=== PATIENT | female | born 1975 | race Caucasian/White ===

== ENCOUNTER 2017-12-22 14:36 | Emergency (ER) | payer BC ==
[~2017-12-22] VITALS: Ht 160 cm; Wt 57.6 kg
[~2017-12-22 14:36] MED LIST: DEPO-PROVE150 MG/1 M IM; LEVAQUIN500 MG PO; NAPROSYN500 MG; PERCOCET 5-3251 EACH PO
[2017-12-22] MEDS ORDERED: TOPIRAMATE25 MG PO (15:03)
[2017-12-22] MEDS ORDERED: IMITREX25 MG PO (15:22)
[2017-12-22] MEDS ORDERED: ZOFRAN ODT4 MG PO (15:22)
== END 2017-12-22 16:51 | disposition home or self-care (01) ==
LOC: ED 14:36
DX: G43.809 Other migraine, not intractable, without status migrainosus (principal); Z87.891 Personal history of nicotine dependence; Z88.6 Allergy status to analgesic agent; Z88.5 Allergy status to narcotic agent; Z88.0 Allergy status to penicillin; Z79.899 Other long term (current) drug therapy
CPT/HCPCS: 96361; 96374; 96375; 99283; J1200; J1885; J2405; J7030

== ENCOUNTER 2021-02-13 00:47 | Emergency (ER) | payer BC ==
[~2021-02-13 00:47] MED LIST changes: +ACETAMINOPHEN500 M1 PO; +ADVIL200 MG PO; +BUSPIRONE HCL15 MG PO; +CEPHALEXIN500 MG PO; +IMITREX25 MG PO; +TOPIRAMATE25 MG PO; +ZANAFLEX4 MG PO; +ZOFRAN ODT4 MG PO
--- OUTSIDE RECORDS SUMMARY | 2021-02-13 00:50 | XMS ---
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 - 2 Visits in 30 Days CARE PROVIDERS SPRING [facility] Current PHONE: [phone] Shayne has no Care Guidelines for this patient. E.Orion VISIT COUNT (12 MO.) [facility] [address] [place] [address] TOTAL 3 NOTE: Visits indicate total known visits. ED/UCC VISIT TRACKING (12 MO.) 02/13/2021 00:48 [facility] [place] TYPE: Emergency COMPLAINT: - VOMITING/BACK PAIN 01/17/2021 08:10 [facility] Emergency DIAGNOSES: - weakness, dizzy, N/V - Weakness - Urinary tract infection, site not specified - Emesis 09/16/2020 14:16 [facility] [place] TYPE: Emergency COMPLAINT: - NAUSEA, FLANK PAIN, ABD PAIN INPATIENT VISIT TRACKING (12 MO.) 09/16/2020 14:17 [facility] [place] TYPE: Observation COMPLAINT: - PANCREATITIS DIAGNOSES: - Migraine, unspecified, not intractable, without status migrainosus - Urinary tract infection, site not specified - Allergy status to analgesic agent - Allergy status to penicillin - Personal history of nicotine dependence - Thrombocytopenia, unspecified - Calculus of kidney - Acute pancreatitis without necrosis or infection, unspecified [email or web address]
== END 2021-02-13 05:56 | disposition home or self-care (01) ==
LOC: ED 00:47
DX: K29.00 Acute gastritis without bleeding (principal)
CPT/HCPCS: 80053; 81001; 83690; 85025; 87088; 99284; J1885; J2405; J7030

== ENCOUNTER 2021-04-03 17:57 | Emergency (ER) | payer BC ==
[~2021-04-03] VITALS: Ht 160 cm; Wt 56.7 kg
== END 2021-04-03 23:06 | disposition home or self-care (01) ==
LOC: ED 17:57
DX: R10.9 Unspecified abdominal pain (principal); Z87.891 Personal history of nicotine dependence; Z87.442 Personal history of urinary calculi
CPT/HCPCS: 74176; 80053; 81001; 83690; 84703; 85025; 99284-25; J1885; J2405; J7030

== ENCOUNTER 2021-07-04 10:03 | Observation (INO) | payer BC ==
[~2021-07-04] VITALS: Ht 160 cm; Wt 60.5 kg
[~2021-07-04 10:03] MED LIST changes: -ZANAFLEX4 MG PO
--- OUTSIDE RECORDS SUMMARY | 2021-07-04 10:06 | XMS ---
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 Shayne has no Care Guidelines for this patient. Priscila VISIT COUNT (12 MO.) 1 [facility] M[facility] 4 [facility]E Bowman TOTAL 5 NOTE: Visits indicate total known visits. ED/UCC VISIT TRACKING (12 MO.) 07/04/2021 10:04 [facility] [place] TYPE: Emergency COMPLAINT: - N/V, BODY ACHES, LOOSE STOOL 04/03/2021 17:58 [facility] [place] TYPE: Emergency COMPLAINT: - ABDOMINAL PAIN/FLANK PAIN DIAGNOSES: - Personal history of nicotine dependence - Personal history of urinary calculi - Unspecified abdominal pain 02/13/2021 00:48 [facility] [place] TYPE: Emergency COMPLAINT: - VOMITING/BACK PAIN DIAGNOSES: - Acute gastritis without bleeding - Nausea with vomiting, unspecified 01/17/2021 08:10 [facility] DIAGNOSES: - weakness, dizzy, N/V - Weakness - Urinary tract infection, site not specified - Emesis 09/16/2020 14:16 [facility] [place] [facility] [place] TYPE: Emergency COMPLAINT: - NAUSEA, FLANK [...] Acute pancreatitis without necrosis or infection, unspecified [email or web address]
--- NOTE | 2021-07-04 16:41 | NUR ---
07/04/21 1641 Myriam Davis 1550 PT ARRIVED IN PACU NON RESPONSIVE TO NOXIOUS STIMULI WITH OPA IN PLACE. 1615 NO CHANGE IN PT STATUS. 1630 NO CHANGE IN PT STATUS. O2 REMOVED. SATS 95% ON RA.
--- NOTE | 2021-07-04 17:10 | NUR ---
PT ARRIVED TO THE FLOOR AT THIS TIME. THIS RN RECEIVED REPORT FROM CALLIE GARCIA
--- NOTE | 2021-07-04 17:15 | NUR ---
pt arrived via stretcher. pt only awakens with painful stimulation and then falls back asleep. 4 inscions noted- all steri strips with scant drainage noted. due to pt resting comfortably, FACES score is 0. cpox placed on pt. admission done to the best of this rn's ability.
--- NOTE | 2021-07-04 18:10 | NUR ---
pts son max here to visit pt. plans to stay the night. this rn updated pts son
--- NOTE | 2021-07-04 18:10 | NUR ---
THIS RN IN PTS ROOM TO DO POST OPP CHECK. PT STILL RESTING QUITE SOUNDLY AT THIS TIME. INSCIONS UNCHANGED AT THIS TIME. VITALS COMPLETED. CALL LIGHT WITHIN REACH
--- NOTE | 2021-07-04 19:05 | NUR ---
SHIFT REPORT RECEIVED FROM DAYSHIFT JOSE CADE AT BEDSIDE. pt DROWSY AND RESTING IN BED, JOSE CADE IN ROOM ADMINISTERING PRN PAIN MEDICATION. CPOX IN PLACE, pt ON RA. RR EVEN AND UNLABORED. SPO2 96%, HR 80. IV FLUIDS INFUSING DIRECTED, SITE WNL. CALL LIGHT IN REACH AND FAMILY IN ROOM.
--- NOTE | 2021-07-04 19:11 | NUR ---
THIS RN IN PTS ROOM TO DO POST OPP CHECK WITH MD. PT MORE AWAKE AT THIS TIME AND REPORTING PAIN 8/10. THIS RN OFFERED PT TORADOL FOR PAIN DUE TO PTS DROWSINESS. PT REQUESTING A STRONGER PAIN MED. PT CONTINUES TO BE ON CPOX, O2 SATS WNL. INSCIONS SITES UNCHANGED
--- NOTE | 2021-07-04 20:05 | NUR ---
IN TO ASSIST RN WITH POST OP VITALS, RN AWARE OF SYS BP, NO FURTHER NEEDS AT THIS TIME, PT RESTING IN BED
--- NOTE | 2021-07-04 20:15 | NUR ---
LAST SET POST OP VSS, CPOX IN PLACE. RR EVEN AND UNLABORED, CALL LIGHT IN REACH.
--- NOTE | 2021-07-04 23:00 | NUR ---
ASSESSMENT COMPLETE, SCHEDULED MEDS GIVEN ALONG WITH PRN PAIN MEDICATION (SEE EMAR) FOR 01/27 PAIN. pt AWAKE AND RESTING IN BED, A/OX4. DENIES NAUSEA, TOLERATING PO LIQUIDS AND JELLO. LAP SITES X4 REMAIN UNCHANGED FROM START OF SHIFT. SCDS IN PLACE, pt UP SBA TO VOID, 500 MLS OUTPUT NOTED. pt DENEIS DIZZINESS. pt BACK IN BED, NO FURTHER NEEDS. CALL LIGHT IN REACH AND SON IN ROOM.
--- NOTE | 2021-07-05 00:30 | NUR ---
pt AMBULATING IN HALLWAY INDEPENDENTLY, STEADY ON FEET.
--- NOTE | 2021-07-05 02:30 | NUR ---
ASSESSMENT COMPLETE, NO NEW CHANGES. LAP SITES X4 REMAIN UNCHANGED, PRN PAIN MEDICATION GIVEN FOR 6/10 PAIN, ICE IN PLACE. SCD'S ON. NO FURTHER NEEDS. CALL LIGHT IN REACH.
[2021-07-05] MEDS ORDERED: VENTOLIN HFA18 GM (04:29)
[2021-07-05] MEDS ORDERED: TIZANIDINE HCL6 MG PO (04:29)
--- NOTE | 2021-07-05 04:32 | NUR ---
pt REPORTS TAKING PO TAZANIDINE 6MG Q8HPRN FOR MUSCLE SPASMS. MED INCLUDED IN MED REC.
--- NOTE | 2021-07-05 05:47 | NUR ---
pt AMBULATING INDEPENDENTLY IN HALLWAY, NO NEEDS VERBALIZED.
--- NOTE | 2021-07-05 05:59 | NUR ---
SCHEDULED IV ABX INFUSING DIRECTED, IV SITE WNL. NEW BAG IV FLUIDS ALSO HUNG PER MD ORDERS, IV SITE WNL. pt REPORTS 5/10 ABD PAIN, SCHEDULED TYLENOL ASLO PROVIDED. CALL LIGHT IN REACH, FRESH ICE PACK PROVIDED. SON MAX IN ROOM.
--- NOTE | 2021-07-05 07:40 | NUR ---
Report from Kaelyn Arora RN. Patient states pain is currently 5/10 and is requesting analgesic. States ice bag is leaking, replaced with new bag.
--- NOTE | 2021-07-05 08:01 | NUR ---
PATIENT AMBULATING AROUND ROOM. REPORT FROM Kaelyn SILVEIRA RN, AT 0740. PATIENT RATED PAIN 5/10. PRN ANALGESIC ADMINISTERED AT THIS TIME. ASSESSMENT COMPLETED. FRESH ICE PACK PROVIDED. FRESH ICE WATER PROVIDED. DENIES OTHER NEEDS AT THIS TIME. STATES SHE HAS NOT SLEPT ALL NIGHT AND WOULD LIKE TO REST THIS AM IF POSSIBLE. CALL LIGHT IN REACH, BED RAILS UP X2.
--- NOTE | 2021-07-05 08:41 | NUR ---
PT REFUSED AM CARE. UPDATED WHITE BOARD. CALL LIGHT WITHIN REACH, NO FURTHER NEEDS AT THIS TIME
[2021-07-05] MEDS ORDERED: ZANAFLEX4 MG PO (09:16)
[2021-07-05] MEDS ORDERED: POLYMYXIN B-TMP10 ML OD (09:17)
--- NOTE | 2021-07-05 09:23 | NUR ---
Sitting up in recliner. States the pain has not improved. Requests pain medication. See EMAR. Patient states pain is worse sitting in recliner. Ambulated just prior to this nurse's arrival this AM, 3 laps around unit. Has been up walking in room multiple times. Repositions self in bed. AM medications administered. Denies other needs at this time. Call light in reach, bed rails up X2.
--- NOTE | 2021-07-05 09:59 | NUR ---
PT BACK IN BED. PT SAYS SITTING IN THE CHAIR CAUSED TOO MUCH PAIN. PT HAD BLINDS RE-CLOSED. CALL LIGHT WITHIN REACH, NO FURTHER NEEDS AT THIS TIME.
[2021-07-05] MEDS ORDERED: IMITREX100 MG PO (10:07)
[2021-07-05] MEDS ORDERED: [UNRECOGNIZED DRUG - OTHER] PO (10:08)
--- NOTE | 2021-07-05 10:08 | NUR ---
MED REC COMPLETE
--- NOTE | 2021-07-05 11:20 | NUR ---
States she has been able to rest after morphine given because pain was better controlled. New ice pack provided. Denies other needs. Call light in reach, bed rails up X2.
--- NOTE | 2021-07-05 12:01 | NUR ---
Ambulating in hallway at this time.
--- NOTE | 2021-07-05 13:15 | NUR ---
Spoke with Opal. She has been suffering with gallbladder issues for one year. Happy to have had lab medardo. Some surgical pain today. Lives in 2 story home with her son. Plans on dc to home. Has two sons, both will help as needed. 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 Does not yet have benefits. I will speak with management about PTO donation or funds from [facility] [place].
--- NOTE | 2021-07-05 14:27 | NUR ---
LYING IN BED. PAIN 6/10, PRN PERCOCET GIVEN. STATES SHE WILL REST FOR A LITTLE BIT THEN GET UP AND AMBULATE IN HALLWAY WHEN MEDICATION HAS STARTED TO TAKE EFFECT. ICE WATER PROVIDED. DENIES OTHER NEEDS AT [facility].
--- NOTE | 2021-07-05 16:26 | NUR ---
Ambulating in hallway.
--- NOTE | 2021-07-05 18:07 | NUR ---
PT IN A CHATTY MOOD. ROOM TIDIED, FRESH ICE WATER AND ICE PACKS BROUGHT. CALL LIGHT WITHIN REACH, NO FURTHER NEEDS AT THIS TIME.
--- NOTE | 2021-07-05 18:33 | OR ---
[facility] [address] [place], [place] [address] Signed DATE OF OPERATION: 07/04/2021 SURGEON: Jennifer Starr MD PREOPERATIVE DIAGNOSIS: Acute calculous cholecystitis. POSTOPERATIVE DIAGNOSIS: Acute calculous cholecystitis. PROCEDURES: 1. Laparoscopic cholecystectomy with intraoperative cholangiogram. 2. Surgeon-directed fluoroscopy. ANESTHESIA: General endotracheal, Jennifer Child CRNA. Local 10 mL of 0.25% Marcaine with epinephrine. INDICATIONS: This 45-year-old white woman presented to the emergency room with two days of increasing abdominal pain and was evaluated by Dr. Elder Arriola in the emergency room, where she was found to have an elevated white count, normal liver enzymes and an ultrasound which showed a distended gallbladder, gallbladder wall thickening, and multiple stones. She has been admitted for pancreatitis several months ago, but stones were not seen, therefore this was allowed to resolve without further intervention. She quite clearly has acute calculous cholecystitis at this time. She has been fluid resuscitated given intravenous antibiotics, IV fluids, and has been n.p.o. since yesterday based on her illness. She is admitted at this time to undergo cholecystectomy preferred by laparoscopic approach. She understands the risks of bleeding, infection, bile duct injury, and need for open procedure, as well as failure to cure her symptoms. Understanding all that, she wished to proceed. FINDINGS: The gallbladder was tensed and distended and quite edematous. Once excised, multiple gallstones were noted within the gallbladder lumen. Cholangiogram was normal. She had no other findings of concern. The liver was normal. DESCRIPTION OF PROCEDURE: The patient was brought to the operating room, given a general endotracheal anesthetic. Preoperative antibiotic Ancef had been given. Sequential compression device stockings Electronically Signed By: JENNIFER STARR MD 07/05/21 1833 PATIENT NAME: TI MARKHAM OPERATIVE REPORT DATE OF : 77 REPORT #: [id number] PHYSICIAN: JENNIFER STARR MD PCP: MILAGRO LONDONO MD REPORT IS CONFIDENTIAL AND NOT TO BE RELEASED WITHOUT AUTHORIZATION [facility] [address] [place], [place] [address] Signed were used. The abdomen was prepared with chlorhexidine solution and draped sterilely. An infraumbilical incision was made and using an open Prince cannula technique, pneumoperitoneum was achieved to a level of 14 mmHg of carbon dioxide gas. Intraabdominal inspection showed no sign of ascites or carcinomatosis, but the gallbladder was quite tense and distended and very edematous. The liver was normal. Three additional trocars were placed in usual configuration in the subxiphoid, right midclavicular, and right anterior axillary line. The gallbladder was elevated cephalad and retracted laterally and although there was a somewhat floppy medial segment of the left lobe of the liver. Dissection of the triangle of Calot was undertaken. Marked edema was noted in the area highly consistent with acute cholecystitis. Ultimately, the cystic duct and cystic arterial branches were dissected free. A clip was applied across gallbladder cystic duct junction and a transverse choledochotomy made in the cystic duct, egress of clear bile was noted. Using the Gillis type cholangiocatheter, intraoperative cholangiography was undertaken showing free flow of contrast in the biliary tree with prompt emptying into the duodenum. There was no sign of filling defect or biliary anomaly. The catheter was removed and the cystic duct was triply clipped and divided. The gallbladder was dissected free in a retrograde fashion. Clips were applied to the cystic arterial branch as well and divided also. The wall of the gallbladder was quite markedly edematous related to the inflammation. The gallbladder was placed in an endobag and extracted through the infraumbilical port site without problem, opened on the back table and found to have multiple yellow gallstones. There was no sign of neoplasm. Irrigation was undertaken in subhepatic space. There was no bleeding or bile leak or other problems. Excess irrigation of fluid was suctioned free. The trocars were then removed under direct visualization showing no sign of bleeding. The infraumbilical fascial incision reapproximated with interrupted 0-Vicryl suture. It was additionally secured with a running 0-PDS suture. A 10 mL of 0.25% Marcaine with epinephrine was injected locally. The skin was closed with interrupted 3-0 Vicryl and Steri-Strips were applied. The patient was ultimately extubated and transported to the recovery room in good condition having suffered no complication. Sponge, needle, and instrument counts reported as correct x3. Jennifer Starr MD Electronically Signed By: JENNIFER STARR MD 07/05/21 1833 PATIENT NAME: TI MARKHAM OPERATIVE REPORT DATE OF : 77 REPORT #: [id number] PHYSICIAN: JENNIFER STRAR MD PCP: MILAGRO LONDONO MD REPORT IS CONFIDENTIAL AND NOT TO BE RELEASED WITHOUT AUTHORIZATION [address] [address] Signed /[facility] /[id number] cc: MD Elder Collazo MD Copies: MILAGRO LONDONO MD, WILLIAM S MD ~ Electronically Signed By: JENNIFER STARR MD 07/05/21 1833 PATIENT NAME: SHAHRZADTI DARLING OPERATIVE REPORT DATE OF : 77 REPORT #: [id number] PHYSICIAN: JENNIFER STARR MD PCP: MILAGRO LONDONO MD REPORT IS CONFIDENTIAL AND NOT TO BE RELEASED WITHOUT AUTHORIZATION
--- NOTE | 2021-07-05 18:33 | HP ---
[facility] [address] [place], [place] [address] Signed ADMISSION DATE: 07/04/2021 REASON FOR ADMISSION: Acute calculous cholecystitis. 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 She has had recurrent bouts of epigastric and vague abdominal pain, having been actually admitted to the hospital with a CAT scan showing inflammation around the pancreas, but a normal lipase, which resolved without further diagnosis. Review of a discharge summary by Dr. Andrew Cummings from September 18, 2020, confirmed that she had abdominal pain radiating into the back, was admitted and observed and gallbladder evaluation of unknown type was considered to be unremarkable. She was noted at the time to have an abnormal urinalysis. For the past two days, she has had increasing abdominal pain, protracted nausea and vomiting and presented once again to the emergency room where she was evaluated thoroughly by Dr. Steele. His evaluation included lab studies, which showed white count elevation of 17,000, normal platelets and hematocrit of 42.2. Her Chem profile was reasonably normal. Liver enzymes are normal as well. Serologic testing showed coronavirus in the past have been negative, but current test is still pending. An abdominal ultrasound was performed at approximately noon, which showed a thickened gallbladder wall as well as definitely thickened gallbladder and pericholecystic fluid and multiple mobile tiny stones. She had a positive Lopez sign as well. Her lipase was noted to be normal. PAST MEDICAL HISTORY: Relatively unremarkable other than her recurrent bouts of abdominal pain as previously noted. She does have a migraine history. PAST SURGICAL HISTORY: Includes breast reduction and tonsillectomy. 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 She is not . She is a former smoker. ALLERGIES: She has allergies to penicillin (yeast infection) and hydrocodone (hives). Electronically Signed By: JENNIFER STARR MD 07/05/21 1833 PATIENT NAME: TI MARKHAM HISTORY AND PHYSICAL DATE OF : 77 REPORT #: [id number] PHYSICIAN: JENNIFER STARR MD PCP: MILAGRO LONDONO MD REPORT IS CONFIDENTIAL AND NOT TO BE RELEASED WITHOUT AUTHORIZATION [facility] [address] [place] [id number] Signed MEDICATIONS: Her home medications have included sumatriptan (Imitrex) for migraines and Zofran for nausea. REVIEW OF SYSTEMS: She denies any chest pain or shortness of breath. Has no dysphagia or dysuria. Denies any hematemesis or blood per rectum. Of note, her urinalysis at this time shows 2-3 white cells per high-power field and no bacteria seen. Her coronavirus assessment is negative today. PHYSICAL EXAMINATION: GENERAL: A thin white woman, who looks to be in moderate discomfort. HEENT: Mucous membranes reasonably moist. NECK: Trachea is midline. CHEST: Shows normal respiratory excursion. Pulse is regular. ABDOMEN: Scaphoid and nondistended. She has a supraumbilical ring present. Abdominal palpation shows tenderness in the epigastric and right subcostal area. There is no mass. She has no ascites. EXTREMITIES: Show no clubbing, cyanosis, or edema. LAB STUDIES: Pertinent show white count of 17, hematocrit of 42.2, and platelets 374,000. Chem profile normal including normal liver enzymes. Lipase normal at 47. COVID serology is negative. IMAGING STUDIES: Have been reviewed, specifically the ultrasound which shows a thickened gallbladder wall and what appeared to be stones aligned along it. The report from Dr. Quynh Gutierrez confirms a normal pancreas and normal liver and multiple tiny stones with wall thickening and pericholecystic fluid. ASSESSMENT: The patient has acute calculous cholecystitis. There is little doubt that she has had symptoms in the past, though evaluation previously was not confirmatory of cholecystitis; she did have pancreatitis on imaging study, but no elevated lipase apparently. I discussed with her the recommendation of treatment to include cholecystectomy, preferably by laparoscopic approach. The risks of bleeding, infection, bile duct injury, need for open procedure and so forth were reviewed in detail. She understands and wished to proceed. Electronically Signed By: JENNIFER STARR MD 07/05/21 1833 PATIENT NAME: TI MARKHAM HISTORY AND PHYSICAL DATE OF : 77 REPORT #: [id number] PHYSICIAN: JENNIFER STARR MD PCP: MILAGRO LONDONO MD REPORT IS CONFIDENTIAL AND NOT TO BE RELEASED WITHOUT AUTHORIZATION [facility] [address] [place], [place] [address] Signed She notes that she would not want to have blood transfusion; it is quite unlikely such a thing would be necessary, but she would prefer against it as it "weird me out." She is a former [employer] and does not object to blood on that basis, simply does not want to have it, though might be amenable in a grave emergency. We would not anticipate blood transfusion with cholecystectomy except in the most dire circumstances obviously. We will attempt to this problem promptly today in hopes of relieving her suffering more promptly and preventing progression of her current situation since she has been n.p.o. since yesterday, has had fluid resuscitation and antibiotics for now already administered. MD MARC Francisco/[facility] /[id number] cc: Elder Steele MD Copies: ELDER STEELE MD ~ Electronically Signed By: JENNIFER STARR MD 07/05/21 1833 PATIENT NAME: TI MARKHAM HISTORY AND PHYSICAL DATE OF : 77 REPORT #: [id number] PHYSICIAN: JENNIFER STARR MD PCP: MILAGRO LONDONO MD REPORT IS CONFIDENTIAL AND NOT TO BE RELEASED WITHOUT AUTHORIZATION
--- NOTE | 2021-07-05 19:27 | NUR ---
pt has been walking up,down hallways, c/o increased abd pain. nursing judgement done and discussed with outgoing primary RN, medicated with 2 Percocet. 12/28 abd pain. back to bed, on room air. SL RFA patent. voiding QS yellow urine, no emesis, tolerating liquids and diet well
--- NOTE | 2021-07-05 22:22 | NUR ---
On room air, alert and oriented to all, ambulating hallways again up and down hallways several times, no c/o pain or n/v. sl patent RFA, no c/o adverse reaction to abx. abd tender 4 lap sites with old drainage R side and umbilical area, HEA, passing gas, no bm. voiding QS yellow urine. independent in room. looking forward to being dc's in am. pleasant and coop with assessments
--- NOTE | 2021-07-05 23:10 | NUR ---
ON ROOM AIR, TURNS AND REPOSITIONS SELF IN BED, EYES CLOSED, NO DISTRESS, FLUIDS AND CALL LIGHT AT BEDSIDE
--- NOTE | 2021-07-06 01:20 | NUR ---
Awake, watled to br, voided, c/o abd pain, ss in place, passing gas, abd tender, medicated with 2 Percocet per abd pain, tolerating liquids well
--- NOTE | 2021-07-06 03:06 | NUR ---
PROVIDED FRESH ICEPACK TO PT, SHE DENIES FURTHER NEEDS. CALL LIGHT IS CLOSE.
--- NOTE | 2021-07-06 04:40 | NUR ---
awake c/o abd pain, medicated with motrin. independent in room, up to br, voided, back to bed, tolerated well. fluids and call light at bedside, received sandwich box and puding, tolerated well, no emesis, scds off at this time
--- NOTE | 2021-07-06 05:17 | NUR ---
PT ON ROOM AIR, CLEAR LUNGS, HAS AMBULATED HALLWAYS SEVERAL TIMES, TOLERATED WELL. C/O ABD PAIN AND WAS MEDICATED WITH PERCOCET 2x'S AND WITH MOTRIN X1 WITH FAIR TO GOOD PAIN RELIEF, ABD TENDER, SLIGHT DISTENTION ON LEFT SIDE. r ABD WITH 3 LAP SITES COVERED WITH SS AND UMBILICAL AREA WITH SS TOO, OLD DRAINAGE TO AREAS. STES PASSING GAS, NO BM. sl PATENT. NO C/O ADVERSE REACTION TO ABX. TOLERATING LARGE AMOUNTS OF FLUIDS AND DIET, NO EMESIS. INDEPENDENT IN ROOM , VOIDING QS YELLOW URINE. USES CALL LIGHT. FLUIDS AND CALL LIGHT AT HANDS REACH
--- NOTE | 2021-07-06 06:52 | NUR ---
awakes easily, c/o 5/10 abd pain. abd tender, abd lap medardo sites with ss in place with old drainage, medicated with Percocet 2 tabs. tolerating liquids well. no emesis
--- NOTE | 2021-07-06 07:21 | NUR ---
Patient report from Laine Patricio RN. Patient resting with eyes closed at this time, respirations even and unlabored. Allowed to rest. Call light in reach, bed rails up X2.
--- NOTE | 2021-07-06 09:02 | NUR ---
Patient is in chair with call light and recieved breakfast.
[2021-07-06] MEDS ORDERED: IBUPROFEN600 MG PO (09:20)
[2021-07-06] MEDS ORDERED: OXYCODON-ACETA1 EAC2 PO (09:20)
[2021-07-06] MEDS ORDERED: ACETAMINOPHEN500 MG PO (09:20)
--- NOTE | 2021-07-06 10:20 | NUR ---
Patient ambulating in hallway this AM. Assessment completed. No changes in pain, states constant 5/10, but she did get some sleep last night.
--- NOTE | 2021-07-07 15:08 | DS ---
[facility] [address] [place], [place] [address] Signed ADMISSION DATE: 07/04/2021 DISCHARGE DATE: 07/06/2021 REASON FOR ADMISSION: Acute calculous cholecystitis. 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 Evaluation by Dr. Hamlin showed her to have on ultrasound markedly inflamed gallbladder with thickening and gallstones. White count was elevated to 17,000, liver enzymes were normal. Notably, she had been evaluated at [employer] for pancreatitis without signs of gallstones at that time in September of 2020. PERTINENT PHYSICAL EXAMINATION: GENERAL: Thin white woman in moderate discomfort. Mucous membranes moist. Trachea midline. CHEST: Clear. HEART: Regular without murmur. ABDOMEN: Soft. Tenderness is noted in the right upper quadrant. Abdominal ultrasound confirmed multiple gallstones and thickened gallbladder wall. HOSPITAL COURSE: She was admitted, given fluid resuscitation, IV antibiotics and taken to operation that day, where she underwent laparoscopic cholecystectomy with intraoperative cholangiogram. There was no sign of stones within the biliary tree. The gallbladder was quite markedly inflamed and edematous. She tolerated the procedure well. She did not feel ready for discharge the following day, as had been expected, but in time improved enough that is able to be discharged without problem. She will return to see us in approximately 4 weeks. DISCHARGE MEDICATIONS: Included: 1. Percocet 7.5/325 one to two p.o. q.6 hours p.r.n. pain #10. 2. Tylenol 1 g p.o. q.6 hours p.r.n. lesser pain. 3. Motrin 600 mg p.o. q.6 hours p.r.n. pain. FOLLOWUP PLAN: Electronically Signed By: JENNIFER STARR MD 07/07/21 3567 PATIENT NAME: TI MARKHAM DISCHARGE SUMMARY DATE OF : 77 REPORT #: [id number] PHYSICIAN: JENNIFER STARR MD PCP: MILAGRO LONDONO MD REPORT IS CONFIDENTIAL AND NOT TO BE RELEASED WITHOUT AUTHORIZATION [facility] [address] [place], [place] [address], [place] [address] Signed She is return to see me in approximately 4 weeks. She will return to work on July 22, 2021. If she needs more time off, she will let us know. She is to lift no more than 20 pounds for the next two weeks. DISCHARGE DIAGNOSES: 1. Acute calculous cholecystitis, status post laparoscopic cholecystectomy with intraoperative cholangiogram. 2. History of pancreatitis, likely related to gallstones, uncertain September 2020. 3. Migraine headache history. MD MARC Francisco/RICKL /[id number] cc: MD Milagro Patricia MD William S. Powell, MD Copies: ADY RUBIN RUSSELL BARR MD POWELL, WILLIAM S MD ~ Electronically Signed By: JENNIFER STARR MD 07/07/21 1508 PATIENT NAME: SHAHRZADTIDORIE DARLING DISCHARGE SUMMARY DATE OF : 77 REPORT #: [id number] PHYSICIAN: JENNIFER STARR MD PCP: MILAGRO LONDONO MD REPORT IS CONFIDENTIAL AND NOT TO BE RELEASED WITHOUT AUTHORIZATION
--- NOTE | 2021-07-09 16:03 | PATH ---
[facility] [address] [facility] [place], [place] [address] Signed SPECIMEN(S): A GALLBLADDER AND STONES SPECIMEN SOURCE: A. GALLBLADDER AND STONES CLINICAL HISTORY: Acute cholecystitis. FINAL PATHOLOGIC DIAGNOSIS: Gallbladder and stones, cholecystectomy: - Cholelithiasis, chronic cholecystitis, and cholesterolosis. DDF:gaby:C2NR MICROSCOPIC EXAMINATION: Histologic sections of all submitted blocks are examined by light microscopy. These findings, together with the gross examination, support the pathologic diagnosis. GROSS DESCRIPTION: The specimen, labeled "SEAN, A," and designated on the requisition "gallbladder and stones," is received in formalin and consists of Specimen: Previously incised gallbladder. Dimensions: Upon reconstruction, 10.2 x 3.2 x 2.8 cm. Serosa: Green, smooth, glistening. Cystic Duct: 0.2 cm in diameter, patent, and the margin is inked blue. Calculi: The gallbladder and specimen container contain multiple, hard, nodular, yellow, irregularly shaped calculi that are from 0.2 up to 1.0 cm in greatest dimension. Mucosa: Green, velvety, glistening. Wall thickness: 0.2 cm. Lymph node: No pericystic lymph nodes are grossly identified. Additional: None. Costume Technician sections are submitted in cassette (A1). AI(under the direct supervision of a pathologist) The Gross Description was prepared using a voice recognition system. The report was reviewed for accuracy; however, sound-alike word errors, addition and/or deletions may occur. If there is any question about this report, please contact Client Services. PERFORMING LABORATORY: PATIENT NAME: TI MARKHAM PATHOLOGY DATE OF : 77 REPORT #: [id number] PHYSICIAN: WALT MONTOYA PCP: MILAGRO LONDONO MD REPORT IS CONFIDENTIAL AND NOT TO BE RELEASED WITHOUT AUTHORIZATION [facility] [address] [place], [place] [address] Signed The technical component was performed by [employer], [address] [place] [address] (Snow Removal/Plowing: Lydia Kenney MD; CLIA# [id number]). Professional interpretation was performed by [facility], [facility], [address] [place] [id number] (CLIA#: [id number]) Diagnostician: Marcos Fabian DO Pathologist Electronically Signed 07/09/2021 Copies: ~ PATIENT NAME: TI MARKHAM PATHOLOGY DATE OF : 77 REPORT #: [id number] PHYSICIAN: WALT MONTOYA PCP: MILAGRO LONDONO MD REPORT IS CONFIDENTIAL AND NOT TO BE RELEASED WITHOUT AUTHORIZATION
== END 2021-07-06 10:10 | disposition home or self-care (01) ==
LOC: ED 10:03 → MS 10:05
PROVIDERS: ADMIT Surgery; ATTEND Surgery
PROC: BF10YZZ Fluoroscopy of Bile Ducts using Other Contrast (ICD-10-PCS; 2021-07-04)
PROC: 0FT44ZZ Resection of Gallbladder, Percutaneous Endoscopic Approach (ICD-10-PCS; principal; 2021-07-04 13:00)
DX: K80.12 Calculus of gallbladder with acute and chronic cholecystitis without obstruction (principal); G43.909 Migraine, unspecified, not intractable, without status migrainosus; Z87.891 Personal history of nicotine dependence; Z88.5 Allergy status to narcotic agent; Z88.0 Allergy status to penicillin; Z79.899 Other long term (current) drug therapy; Z20.822 Contact with and (suspected) exposure to COVID-19
CPT/HCPCS: 00790; 74300; 76705; 80053; 81001; 83690; 84703; 85025; 96372; 96375; 96376; A9270; C9803; G0378; J0131; J0330; J0690; J1100; J1170; J1644; J1790; J1885; J2250; J2270; J2405; J2550; J2704; J2765; J3010; J7030; J7121; Q9967; U0003

== ENCOUNTER 2021-12-24 16:03 | Emergency (ER) | payer OTHER ==
[~2021-12-24] VITALS: Ht 160 cm; Wt 51.3 kg
[~2021-12-24 16:03] MED LIST changes: +ACETAMINOPHEN500 MG PO; +IBUPROFEN600 MG PO; +IMITREX100 MG PO; +OXYCODON-ACETA1 EAC2 PO; +POLYMYXIN B-TMP10 ML OD; +TIZANIDINE HCL6 MG PO; +VENTOLIN HFA18 GM; +ZANAFLEX4 MG PO; +[UNRECOGNIZED DRUG - OTHER] PO
[2021-12-24] MEDS ORDERED: ATORVASTATIN CA40 MG PO (16:15)
[2021-12-24] MEDS ORDERED: ASPIRIN81 MG PO (16:15)
[2021-12-24] MEDS ORDERED: BRILINTA90 MG PO (16:15)
--- NOTE | 2021-12-25 19:07 | EKG ---
[facility] [address] [facility] [place], [place] [address] Signed Normal sinus rhythm with sinus arrhythmia Nonspecific ST abnormality Abnormal ECG No previous ECGs available Confirmed by MARQUIS CASTELLANO MD ([id number]) on 12/25/2021 7:06:44 PM Electronically Signed By: MARQUIS CASTELLANO MD 12/25/21 1907 PATIENT NAME: TI MARKHAM Electrocardiogram DATE OF : 77 PHYSICIAN: MARQUIS CASTELLANO MD REPORT #: [id number] REPORT IS CONFIDENTIAL AND NOT TO BE RELEASED WITHOUT AUTHORIZATION
== END 2021-12-24 18:50 | disposition short-term general hospital (02) ==
LOC: ED 16:03
DX: I21.4 Non-ST elevation (NSTEMI) myocardial infarction (principal); D69.6 Thrombocytopenia, unspecified; Z95.5 Presence of coronary angioplasty implant and graft; Z87.891 Personal history of nicotine dependence; Z88.0 Allergy status to penicillin; Z88.5 Allergy status to narcotic agent; Z79.899 Other long term (current) drug therapy; Z20.822 Contact with and (suspected) exposure to COVID-19
CPT/HCPCS: 36415; 71045; 80053; 84484; 85025; 85060; 87502; 93005; 93010; C9803; J1644; U0003

== ENCOUNTER 2022-07-23 21:30 | Emergency (ER) | payer BC ==
[~2022-07-23] VITALS: Ht 160 cm; Wt 56.2 kg
[~2022-07-23 21:30] MED LIST changes: +ASPIRIN81 MG PO; +ATORVASTATIN CA40 MG PO; +BRILINTA90 MG PO; +CLOPIDOGREL75 MG PO; +METOPROLOL SUCC25 MG PO; +NITROGLYCERIN0.4 MG SL
--- OUTSIDE RECORDS SUMMARY | 2022-07-23 21:32 | XMS ---
PreManage Notification: TI MARKHAM Security Pediatrics Physician Events No recent Security Events currently on file CRITERIA MET - PDMP CARE PROVIDERS [facility] 07/05/2021-Current PHONE: Unknown Shayne has no Care Guidelines for this patient. EArt VISIT COUNT (12 MO.) 2 Amarilis Bowman TOTAL 5 NOTE: Visits indicate total known visits. ED/UCC VISIT TRACKING (12 MO.) 07/23/2022 21:31 [facility] TYPE: Emergency COMPLAINT: - VOMITING,FLANK PAIN, CHILLS 05/26/2022 05:43 [facility] TYPE: Emergency COMPLAINT: - CP DIAGNOSES: - Allergy status to narcotic agent - Old myocardial infarction - Other senior care (current) drug therapy - Atherosclerotic heart disease of [place] coronary artery without angina pectoris - Jaw pain - Pain in left arm - Personal history of nicotine dependence - Allergy status to penicillin - FPC (current) use of aspirin - Chest pain, unspecified 01/02/2022 12:51 [facility] TYPE: Emergency DIAGNOSES: - Non-ST elevation (NSTEMI) myocardial infarction - Chest pain, unspecified 12/24/2021 16:03 [facility] [place] TYPE: Emergency COMPLAINT: - CHEST PAIN DIAGNOSES: - Personal history of nicotine dependence - Allergy status to penicillin - Presence of coronary angioplasty implant and graft - Allergy status to narcotic agent - Thrombocytopenia, unspecified - Other intermodal dispatcher (current) drug therapy - Contact with and (suspected) exposure to COVID-19 - Non-ST elevation (NSTEMI) myocardial infarction - Chest pain, unspecified 11/23/2021 00:32 [facility] TYPE: Emergency DIAGNOSES: - Unstable angina INPATIENT VISIT TRACKING (12 MO.) 01/02/2022 12:51 [facility] TYPE: Intermediate Care DIAGNOSES: - Chest pain, unspecified [facility]24[facility] 19[facility] COMPLAINT: - CHEST PAIN/ELVATED TROP DIAGNOSES: 0. Chest pain, unspecified 1. Other chest pain 2. Old myocardial infarction 3. Presence of coronary angioplasty implant and graft 4. Thrombocytopenia, unspecified 5. Anxiety disorder, unspecified 6. Depression, unspecified 7. Allergy status to narcotic agent 8. Allergy status to penicillin 9. FPC (current) use of aspirin 10. Other senior care (current) drug therapy 11. Personal history of urinary calculi 12. Acquired absence of other specified parts of digestive tract 13. Family history of ischemic heart disease and other diseases of the circulatory system 14. Family history of diabetes mellitus 15. Personal history of nicotine dependence 11/23/2021 00:32 Amar[facility] A[facility]ON TYPE: Intermediate Care COMPLAINT: - I20.0 DIAGNOSES: - Unstable angina [email or web address]
[2022-07-23] MEDS ORDERED: ONDANSETRON ODT8 MG PO (22:00)
[2022-07-23] MEDS ORDERED: NEXPLANON68 MG SUB-Q (22:01)
[2022-07-24] MEDS ORDERED: PERCOCET 5-3251 EACH PO (02:05)
[2022-07-24] MEDS ORDERED: PROMETHAZINE HC25 M1 PO (02:05)
== END 2022-07-24 02:22 | disposition home or self-care (01) ==
LOC: ED 21:30
DX: K85.90 Acute pancreatitis without necrosis or infection, unspecified (principal); D72.829 Elevated white blood cell count, unspecified; G43.909 Migraine, unspecified, not intractable, without status migrainosus; I25.2 Old myocardial infarction; Z87.891 Personal history of nicotine dependence; Z88.5 Allergy status to narcotic agent; Z88.0 Allergy status to penicillin; Z79.899 Other long term (current) drug therapy; Z79.82 Long term (current) use of aspirin
CPT/HCPCS: 36415; 74177; 80053; 81001; 83690; 84703; 85025; 85060; 87502; 96361; 96374; 96375; 99284-25; J1170; J2550; J7030; Q9967; U0003

== ENCOUNTER 2023-05-16 08:45 | Day surgery (SDC) | payer BC ==
[2023-05-14 13:53] VITALS: BP 126/76
[~2023-05-16] VITALS: Ht 160 cm; Wt 70.5 kg
[~2023-05-16 08:45] MED LIST changes: +FAMOTIDINE20 MG PO; +NEXPLANON68 MG SUB-Q; +ONDANSETRON ODT8 MG PO; +PROMETHAZINE HC25 M1 PO; +TRAMADOL HCL100 M2 PO
[2023-05-16] MEDS ORDERED: MOTRIN IB200 M1 PO (09:08)
[2023-05-16 09:13] VITALS: BP 116/85
--- NOTE | 2023-05-16 09:37 | NUR ---
05/16/23 0937 Linda Red PREVIOUS DOCUMENTATION IN PACU AROUND 0800 IS ON THE WRONG PT AND CAN BE DISREGARDED.
[2023-05-16 11:44] VITALS: BP 121/68
--- NOTE | 2023-05-20 15:30 | PATH ---
[facility] [address] [facility] [place], [place] [address] Signed SPECIMEN(S): A CECUM BIOPSY SPECIMEN(S): B RECTUM BIOPSY SPECIMEN SOURCE: A. CECUM BIOPSY B. RECTUM BIOPSY CLINICAL HISTORY: Initial screening colonoscopy. Postop: Mild chronic proctitis and diverticulosis FINAL PATHOLOGIC DIAGNOSIS: A. Cecum biopsy: - Benign colonic mucosa with focal chronic mucosal inflammation (non-specific). - Negative for dysplasia. B. Rectum biopsy: - Benign colonic mucosa with slight hyperplastic features (two fragments). - Negative for pathologic inflammation. JVR:[facility] MICROSCOPIC EXAMINATION: Histologic sections of all submitted blocks are examined by light microscopy. These findings, together with the gross examination, support the pathologic diagnosis. GROSS DESCRIPTION: A. The specimen, labeled and designated "Vinod cecum biopsy," is received in formalin and consists of three toussaint soft tissue fragments, ranging from 0.2-0.3 cm. Entirely submitted in (A1). B. The specimen, labeled and designated "Vinod, rectum biopsy," is received in formalin and consists of three toussaint soft tissue fragments, ranging from 0.1 cm. Entirely submitted in (B1). JS (under the direct supervision of a pathologist) The Gross Description was prepared using a voice recognition system. The report was reviewed for accuracy; however, sound-alike word errors, addition and/or deletions may occur. If there is any question about this report, please contact Client Services. PERFORMING LABORATORY: Technical component was performed by [facility], Sussy Edmond, PATIENT NAME: TI MARKHAM PATHOLOGY DATE OF : 77 REPORT #: [id number] PHYSICIAN: WALT MONTOYA PCP: MILAGRO LONDONO MD REPORT IS CONFIDENTIAL AND NOT TO BE RELEASED WITHOUT AUTHORIZATION [address] [place], [place] [address] [place] [address] (CLIA# [id number]). [facility] - [address] [place] [address] (CLIA#: [id number]). Diagnostician: Timothy Unger MD Pathologist Electronically Signed 05/20/2023 Copies: ~ PATIENT NAME: TI MARKHAM PATHOLOGY DATE OF : 77 REPORT #: [id number] PHYSICIAN: WALT MONTOYA PCP: MILAGRO LONDONO MD REPORT IS CONFIDENTIAL AND NOT TO BE RELEASED WITHOUT AUTHORIZATION
--- NOTE | 2023-05-21 13:13 | OR ---
[facility] [address] [place], [place] [address] Signed DATE OF OPERATION: 05/16/2023 SURGEON: Jennifer Starr MD PREOPERATIVE DIAGNOSIS: Colon screening. POSTOPERATIVE DIAGNOSES: 1. Mild cecal inflammation. 2. Diverticulosis of sigmoid. PROCEDURE: Total colonoscopy to cecum with biopsies. ANESTHESIA: Propofol infusion. Fei Molina CRNA. INDICATION: This 47-year-old white woman is a patient of Dr. Jensen and is referred for screening colonoscopy. She has no family history of colon cancer and is asymptomatic as regard to colon symptoms. Due to number of reasons including probable tolerance of sedating medication, propofol assisted sedation is recommended. She understands the risk of colonoscopy including but not limited to bleeding, infection, and perforation and wished to proceed. FINDINGS: The prep was good. Complete colonoscopy was undertaken to the cecum. There appeared to be deep sulci type diverticular change of the sigmoid colon. Mild inflammation of the rectum. There was also melanosis coli of the cecum. There were no other findings of note. DESCRIPTION OF PROCEDURE: The patient was brought to the endoscopy suite and placed in lateral decubitus position. Given intravenous sedation to the point of slurred speech and nystagmus with propofol infusional sedation. Full cardiopulmonary monitoring was maintained. Digital rectal examination was normal. An Olympus video colonoscope was passed in the rectum and manipulated throughout the colon ultimately intubating the cecum itself. The ileocecal valve and appendiceal orifice were normal. There appeared to be melanosis coli. Biopsies were taken of the Electronically Signed By: JENNIFER STARR MD 05/21/23 8923 PATIENT NAME: TI MARKHAM OPERATIVE REPORT DATE OF : 77 REPORT #: [id number] PHYSICIAN: JENNIFER STARR MD PCP: MILAGRO JENSEN MD REPORT IS CONFIDENTIAL AND NOT TO BE RELEASED WITHOUT AUTHORIZATION [facility] [address] [place], [place] [address] Signed cecum. The scope was then withdrawn. Examination throughout showed no sign of abnormality other than deep sulci type diverticular change of the sigmoid colon. A biopsy was taken of the rectum to assess for inflammation as there appeared to be mild inflammation of the rectum itself. The scope was retroflexed and there were no other findings of concern. The scope was removed and the patient was taken to the recovery room in good condition. CONCLUDING DIAGNOSIS: 1. Melanosis coli; mild chronic proctitis. 2. Deep sulci diverticula of sigmoid. RECOMMENDATIONS: I would recommend she continue with a high-fiber diet. The patient is a vegetarian. I would recommend repeat colonoscopy in 10 years sooner if clinically indicated. She will return to the ongoing care of Dr. Jensen. MD MARC Francisco/JACLYN /[id number] cc: Dr. Jensen Copies: ~ Electronically Signed By: JENNIFER STARR MD 05/21/23 1313 PATIENT NAME: TI MARKHAM OPERATIVE REPORT DATE OF : 77 REPORT #: [id number] PHYSICIAN: JENNIFER STARR MD PCP: MILAGRO JENSEN MD REPORT IS CONFIDENTIAL AND NOT TO BE RELEASED WITHOUT AUTHORIZATION
== END 2023-05-16 11:55 | disposition home or self-care (01) ==
LOC: DS 08:45 → OPS 08:45 → DS 10:15 → OPS 10:15
PROVIDERS: ATTEND Surgery
PROC: 0DBP8ZX Excision of Rectum, Via Natural or Artificial Opening Endoscopic, Diagnostic (ICD-10-PCS; 2023-05-16)
PROC: 0DBH8ZX Excision of Cecum, Via Natural or Artificial Opening Endoscopic, Diagnostic (ICD-10-PCS; principal; 2023-05-16 11:25)
DX: Z12.11 Encounter for screening for malignant neoplasm of colon (principal); K80.00 Calculus of gallbladder with acute cholecystitis without obstruction; Z86.69 Personal history of other diseases of the nervous system and sense organs; Z90.49 Acquired absence of other specified parts of digestive tract; Z95.5 Presence of coronary angioplasty implant and graft; Z98.890 Other specified postprocedural states; Z88.5 Allergy status to narcotic agent; Z88.0 Allergy status to penicillin; K57.30 Diverticulosis of large intestine without perforation or abscess without bleeding
CPT/HCPCS: 00811; 84703; J2001; J2704; J7121

== ENCOUNTER 2025-03-27 19:40 | Emergency (ER) | payer OTHER ==
[~2025-03-27] VITALS: Ht 160 cm; Wt 55.0 kg
[~2025-03-27 19:40] MED LIST changes: +MOTRIN IB200 M1 PO
[2025-03-27] MEDS ORDERED: TETRACAINE HCL 0.5% 4 ML BTL OD ONE (20:00)
[2025-03-27] MEDS ORDERED: MAXITROL EYE DRO5 ML OPTH (20:02)
[2025-03-27] MEDS ORDERED: NEOMYCIN/POLYMYXIN/DEXAMETH OPTH SUSPENSION BOTTLE OD ONE (20:15)
[2025-03-27 20:23] VITALS: BP 139/90
== END 2025-03-27 20:24 | disposition home or self-care (01) ==
LOC: ED 19:40
DX: H18.821 Corneal disorder due to contact lens, right eye (principal); I25.2 Old myocardial infarction; Z87.891 Personal history of nicotine dependence; Z88.5 Allergy status to narcotic agent; Z88.0 Allergy status to penicillin; Z79.899 Other long term (current) drug therapy
CPT/HCPCS: 99283